=== PATIENT | female | born 1955 | race Caucasian/White ===

== ENCOUNTER → 2020-01-28 08:59 | Outpatient (CLI) | payer MEDICARE, SELFPAY ==
--- NOTE | 2020-01-28 09:07 | XR_ITS ---
PROCEDURE: XR DEXA AXIAL SKELETON CLINICAL HISTORY: POST MENOPAUSAL COMPARISON: No exams were available for comparison FINDINGS: The right hip BMD is 0.652 with a t-score of -1.8. The left hip BMD is 0.609 with a t-score of -2.2. The lumbar spine BMD is 0.803 with a t-score of -2.2. IMPRESSION: Osteopenia with moderate fracture risk. Treatment advised. Suggest follow-up exam in 2 years Dictated b Stew Tse MD 01/29/2020 08:05 Stew Tse MD in [facility] 01/29/2020 08:05
== END ==
PROVIDERS: PCP Family Medicine; Visit Provider Internal Medicine Hematology & Oncology
DX: M85.89 Other specified disorders of bone density and structure, multiple sites (principal); C50.911 Malignant neoplasm of unspecified site of right female breast; Z17.0 Estrogen receptor positive status [ER+]
CPT/HCPCS: 77080

== ENCOUNTER → 2020-05-15 08:58 | Outpatient (CLI) | payer MEDICARE, SELFPAY ==
--- NOTE | 2020-05-15 09:02 | US_ITS ---
PROCEDURE: US THYROID CLINICAL INDICATION: FATIGUE, SORE THROAT COMPARISON: No exams were available for comparison FINDINGS: Right lobe: 1.5cm x 3.8cm x 1.5cm there is a 6 mm ill-defined heterogeneous area of slight decreased echogenicity in the upper pole on the right and may be due to small nodule versus heterogeneous echogenicity. In the lower pole there is a 13 x 5 mm hypoechoic nodule with a somewhat spongiform appearance. Left lobe: 1.0cm x 4.4cm x 1.8cm. There is a 4 mm hyperechoic area in the upper pole on the left and may be due to small nodule. A spongiform nodules present in the upper pole at 7 mm. In the mid polar region there is a 6 mm hypoechoic nodule. Mixed nodules present in the lower pole at 7 mm. Isthmus: Unremarkable Additional findings: IMPRESSION: Bilateral heterogeneous echogenicity with small bilateral nodules. Consider 6-12 month follow-up to confirm stability Dictated by: Stew Tse MD 05/17/2020 12:10 Stew Tse MD in [facility] 05/17/2020 12:10
== END ==
PROVIDERS: PCP Family Medicine; Visit Provider Nurse Practitioner
DX: R53.83 Other fatigue (principal); J02.9 Acute pharyngitis, unspecified
CPT/HCPCS: 76536

== ENCOUNTER → 2021-01-15 11:00 | Outpatient (CLI) | payer MEDICARE, SELFPAY ==
--- NOTE | 2021-01-15 11:03 | US_ITS ---
PROCEDURE: US THYROID CLINICAL INDICATION: THYROID GOITER COMPARISON: US US THYROID from 05/15/2020 FINDINGS: Right lobe: The right lobe is 3.9 x 1.4 x 1.7 cm. The upper pole there is a heterogeneous 7 x 5 mm slightly hypoechoic nodule unchanged. There is an oval 13 by 5 mm hypoechoic nodule in the lower pole unchanged. Left lobe: 3.9 x 1.2 x 1.4 cm. 4 mm hyperechoic nodule in the upper pole unchanged. 6 mm heterogeneous hypoechoic nodule upper pole unchanged. 5 mm hypoechoic/cystic nodule mid polar region unchanged. 4 mm hypoechoic nodule lower pole unchanged. Isthmus: Unremarkable Additional findings: IMPRESSION: Bilateral thyroid nodules as described above benign-appearing and not significantly changed. Annual follow-up suggested. Dictated by: Stew Tse MD 01/15/2021 14:06 Stew Tse MD in [facility] 01/15/2021 14:06
== END ==
PROVIDERS: PCP Family Medicine; Visit Provider Otolaryngology
DX: E04.9 Nontoxic goiter, unspecified (principal)
CPT/HCPCS: 76536

== ENCOUNTER → 2022-02-19 09:23 | Outpatient (CLI) | payer MEDICARE, SELFPAY ==
--- NOTE | 2022-02-19 09:31 | XR_ITS ---
FINAL REPORT CLINICAL HISTORY: .halfway use of meds h/o breast cancer COMPARISON: January 28, 2020 FINDINGS: DEXA BONE DENSITY AXIAL SKELETON Using L1-4, the bone mineral density of the spine is 0.802 g/cm2, corresponding to T-score of -2.2. Previously measured 0.803 g/cm2, corresponding to T-score of -2.2. Using the left hip, the bone mineral density of the femoral neck is 0.595 g/cm2, corresponding to a T-score of -2.3. Previously measured 0.609 g/cm2, corresponding to T-score of -2.2. NOTE: T-score: Standard deviation compared with peak bone mass of young adult mean. *Following the recommendations of the International Society of Bone densitometry, classification of hip BMD is based on the lower of two T-scores; total hip or femoral neck. IMPRESSION: Diminished bone mineral density of the lumbar spine and left hip consistent with osteopenia, similar to prior. FRAX 10 year fracture risk is 2.4% for a hip fracture and 12% for a major osteoporotic fracture. Reviewed, Interpreted and Dictated by Cristofer Blakely III, MD Transcribed by Zamzam Harrison Authenticated and [facility]
--- NOTE | 2022-02-19 09:33 | US_ITS ---
FINAL REPORT CLINICAL HISTORY: THYROID GOITER COMPARISON: 01/15/2021 FINDINGS: Sonographic images of the thyroid were obtained. The thyroid demonstrates a heterogeneous echogenicity. The right lobe of the thyroid measures 4.5 x 1.7 x 1.7 cm. The left lobe of the thyroid measures 4.0 x 1.5 x 1.5 cm. In the right lobe of the thyroid, there is a solid, hypoechoic nodule measuring 8 x 5 x 6 mm consistent with TI-RADS category 4. There is a 2nd nodule in the mid right thyroid which is mostly solid and hypoechoic measuring 8 x 4 x 9 mm consistent with TI-RADS category 4. There is a nodule in the left upper thyroid lobe which is solid and hypoechoic measuring 11 x 7 x 5 mm. There is a nodule in the mid left thyroid lobe which is cystic, solid, and isoechoic measuring 11 x 7 x 7 mm consistent with TI-RADS category 2. Several other smaller nodules are seen bilaterally. IMPRESSION: Multiple bilateral thyroid nodules. A direct comparison is difficult but the visualized nodules appear stable. No new nodule is identified. Recommend follow-up ultrasound in 6-12 months. Reviewed, Interpreted and Dictated by Cristofer Blakely III, MD Transcribed by Lorie Francis Authenticated and [facility]
== END ==
PROVIDERS: PCP Family Medicine; Visit Provider Nurse Practitioner Family
DX: E04.9 Nontoxic goiter, unspecified (principal); C50.911 Malignant neoplasm of unspecified site of right female breast; Z17.0 Estrogen receptor positive status [ER+]; Z79.811 Long term (current) use of aromatase inhibitors
CPT/HCPCS: 76536; 77080

== ENCOUNTER 2024-03-05 08:43 | Outpatient (CLI) | payer MEDICARE, SELFPAY ==
--- NOTE | 2024-03-05 08:48 | XR_ITS ---
FINAL REPORT TECHNIQUE: Bone mineral density was calculated of the lumbar spine and hip. CLINICAL HISTORY: MENOPAUSE COMPARISON: 02/19/2022 FINDINGS: Using L1-4, the bone mineral density of the spine is 0.794 g/cm2, corresponding to T-score of -2.3. Using the left hip, the bone mineral density of the femoral neck is 0.634 g/cm2, corresponding to a T-score of -1.9. NOTE: T-score: Standard deviation compared with peak bone mass of young adult mean. *Following the recommendations of the International Society of Bone densitometry, classification of hip BMD is based on the lower of two T-scores; total hip or femoral neck. IMPRESSION: Diminished bone mineral density of the lumbar spine and left hip consistent with low bone density osteopenia. Reviewed, Interpreted and Dictated by Cristofer Blakely III, MD Transcribed by Paige Echevarria Authenticated and [facility]
== END 2024-03-05 23:59 | disposition home or self-care (01) ==
LOC: RAD 08:44
PROVIDERS: PCP Family Medicine; Visit Provider Internal Medicine Hematology & Oncology
DX: M81.0 Age-related osteoporosis without current pathological fracture (principal); Z78.0 Asymptomatic menopausal state; Z13.820 Encounter for screening for osteoporosis
CPT/HCPCS: 77080

== ENCOUNTER 2024-04-20 08:55 | Outpatient (CLI) | payer MEDICARE, SELFPAY ==
--- OUTSIDE RECORDS SUMMARY | 2024-04-20 08:59 | XMS_ITS ---
Care Plan - [facility], [facility] Created on: April 20, 2024 NASIM SMITH : 1955 Sex: Female Author Organization [facility] Address [address] [place] [address] Phone Care Team Providers Care Cab Station Attendant Name Role Phone Liliana TO, Ash Reilly Unavailable [phone]
--- OUTSIDE RECORDS SUMMARY | 2024-04-20 08:59 | XMS_ITS ---
Author Organization [facility] Address [address] [place] [address] Phone Care Team Providers Care Shroudman Name Role Phone Liliana TO, Ash Reilly Unavailable [phone] Problems Includes: Active, inactive, and resolved Problems All Visits Onset Date Resolved Date Provider Condition S tatus Joint Pain in the Left Wrist 04/09/2024 Walter Anaya MD Active Last Documented On 4 9:18AM ; [facility] Plan of Treatment Findings Encounter Date Patient screened for future fall risk: documentation of any fall with injury in past year Physician Specified with Walter Anaya MD 04/09/2024 Last Documented On 4 3:54PM ; [facility] Future Appointments Date Time Location Provi ananth Physician Specified 04/23/2024 10:00AM [facility] Gerardo Gipson DPM Last Documented On 4 2:55PM ; [facility] Instructions to patient Lose weight Last Documented On 4 9:19AM ; [facility] Assessments Includes: Assessments for all patient encounters No Assessments Recorded Instructions Includes: Instructions for all patient encounters Instructions to patient Lose weight Last Documented On 4 9:19AM ; [facility] Medical Equipment - Implanted Devices Includes: Current and historical Devices No Medical Equipment Recorded Medications Includes: Current and historical Medications Current Medications (continue as prescribed) [facility] Vitamin D3 25 MCG (1000 UT) Oral Tablet Chewable 1 Provider: Diagnosis: Last Documented On 4 11:07AM By Arcelia Meyer ; [facility] Calcium 200 MG Oral Tablet 04/09/2024 Provider: Diagnosis: Last Documented On 4 11:08AM By Arcelia Meyer ; [facility] Anastrozole 1 MG Oral Tablet 04/08/2024 Provider: Diagnosis: Last Documented On 4 11:07AM By Arcelia Meyer ; [facility] Medications Administered Includes: Administered Medications in patient's chart No Administered Medications Recorded Vital Signs Includes: Vital Signs from 04/20/2023 through 04/20/2024 Vital Name 04/09/2024 09:19A Height (in) 64 Weight (lb) 170 Body Mass Index 29.2 Body Surface Area 1.8 Note: KL Last Documented: On 04/09/2024 11:07A M ; [facility] Results Includes: Results from 04/20/2023 through 04/20/2024 No Results Recorded For Specified Dates History of Present Illness History of Present Illness not supported for this document type No History of Present Illness Recorded Social History Description Last Updated Exercising regularly 04/09/2024 Last Documented On 4 3:54PM ; [facility] No caffeine use 04/09/2024 Last Documented On 4 3:54PM ; [facility] No recent change in diet 04/09/2024 Last Documented On 4 3:54PM ; [facility] Not a current smoker. 04/09/2024 Last Documented On 4 3:54PM ; [facility] Not using alcohol 04/09/2024 Last Documented On 4 3:54PM ; [facility] Not using drugs 04/09/2024 Last Documented On 4 3:54PM ; [facility] Smoking Status Unknown Procedures and Surgical History Surgical History Last Updated Past Surgical History: BREAST CA 024 Last Documented On 4 3:54PM ; [facility] Medical History Includes: Medical History in patient's chart Description Last Updated History of History of Cancer 04/09/2024 Last Documented On 4 3:54PM ; [facility] Family History Includes: Family History in patient's chart Description Last Updated Family history of rheumatoid arthritis 1 Last Documented On 4 3:54PM ; [facility] Family history of systemic hypertension 04/09/2024 Last Documented On 4 3:54PM ; [facility] Review of Systems Review of Systems not supported for this document type No Review of Systems Recorded Mental Status Description No anxiety Functional Status No Functional Status Recorded Physical Exam Physical Exam not supported for this document type No Physical Exam Recorded Allergies Includes: Active, inactive, and resolved Allergies Substance Type Reaction Onset Date Resolved Date Statu s OTHER Allergy mold 01/09/2007 Active Last Documented On 4 9:18AM ; [facility] Encounters Includes: Encounters from 04/20/2023 through 04/20/2024 Encounter Provider Location Date Check-In Time Check-Out Time Diagnosis Physician Specified Walter Anaya MD [facility] 04/09/20 24 9:27AM 9:58AM Insurance Includes: Active Insurance Policies Plan Name Member ID Group # Subscriber Relationship Effect shoshana Dates 1 - [facility]/ MEDICARE [id number] NASIM SMITH Self Clinical Notes Includes: Signed Clinical Notes starting from 06/06/2022 * Progress note Date Encounter Last Documented by 04/09/2024 Physician Specified Last sterling arellano on 04/09/2024; 3:54 PM, Walter Anaya MD; [facility] Active Problems & Conditions - Joint Pain in the Left Wrist Chief Complaint The Chief Complaint is: LEFT WRIST PAIN. History of Present Illness NASIM SMITH is a 68 year old female. - Allergy list reviewed - Problem list reviewed - Medication list reviewed - Previous history of new onset pain Injury is not work related or an automotive accident - Pain is occasional (25% of the time) - Patient pain level from 1-10: 2 - Yes, previous treatment. PCP - - Review of medications documented 68-year-old female presents for evaluation of her right radial sided wrist pain. Patient bought an [id number] wrist brace and has been utilizing anti-inflammatories and notes that her symptoms have significantly improved and nearly gone away. She was actually going to cancel her appointment today. Current Medication - Anastrozole 1 MG Oral Tablet 90 days, 0 refills - Calcium 200 MG Oral Tablet 0 days, 0 refills - [facility] Vitamin D3 25 MCG (1000 UT) Oral Tablet Chewable 0 days, 0 refills Past Medical/Surgical History Diagnoses: History of Cancer Surgical: - Past Surgical History: BREAST CA Social History Not a current smoker. Current diet: No recent change in diet. Caffeine use: No caffeine use. Alcohol: Not using alcohol. Drug Use: Not using drugs. Habits: Exercising regularly. Allergies - OTHER Reaction: mold Family History Systemic hypertension Rheumatoid arthritis Review Of Systems Systemic: Not feeling tired, no recent weight loss, and no recent weight gain. Head: No headache and no sinus pain. Eyes: No vision problems, no Cataracts, no Glasses/Contacts, and no Glaucoma. Otolaryngeal: No hearing loss and no tinnitus. Cardiovascular: No chest pain or discomfort, no palpitations, no Hypertension, and no High Cholesterol. Pulmonary: No daytime asthma symptoms and no chronic cough. No wheezing. Gastrointestinal: No heartburn and no abdominal pain. No Indigestion, no Peptic Ulcer, no GI Stomach Bleed, no Ulcers, and no Acid Reflux. Endocrine: No hot flashes, no muscle weakness, no Diabetes, no Hypothyroid, and no Hyperthyroid. Hematologic: No easy bleeding, no tendency for easy bruising, and no Anemia. Musculoskeletal: No Arthritis and no lower back pain. No soft tissue swelling and no localized joint pain. Neurological: No dizziness, no convulsions, and no numbness. Psychological: No anxiety, no emotional lability, no depression, and no insomnia. Not crying for no reason. Skin: No dry skin. No Ulcers, no Scars, and no rash. Allergic and Immunologic: No complaint of seasonal allergic reaction. Physical Findings - Vitals taken 04/09/2024 09:19 am KL Height 64 in Weight 170 lbs Body Mass Index 29.2 kg/m2 Body Surface Area 1.8 m2 PHYSICAL EXAM: CONSTITUTIONAL: Well developed, well groomed, well nourished patient in no acute distress who appears stated age, height and weight. PSYCHIATRIC: The patient is alert and oriented to person, place, date and situation. Mood and affect are normal for current situation. NEUROLOGICAL: Sensation normal bilateral upper and lower extremities. LYMPHATIC: No pitting edema noted in the lower extremities. SKIN: No lesions noted on upper or lower extremities. Skin is dry, warm and with normal turgor. VASCULAR: No swelling in upper or lower extremities other than described below in extremity exam. Pulses normal in both upper (radial) extremities. GAIT AND STATION: Normal gait without assistive devices. Station normal. Left WRIST/HAND: Able to make a composite fist Able to flex and extend all fingers Hand is warm and well perfused Sensation intact to light touch distally in all nerve distributions Patient has mild tenderness over the 1st dorsal compartment, negative Dhruv's. No pain with CMC grind or palpation. Tests Three-view x-rays of the left wrist demonstrate mild degenerative changes and mild osteopenia. No acute osseous abnormalities Previous Tests Imaging: X-Ray: An X-ray was performed. Basic Management Procedures And Services: - Brace Counseling/Education - Tobacco non-user - Use of tobacco assessment performed - Lose weight Plan - Patient screened for future fall risk: documentation of any fall with injury in past year 68-year-old female with resolving, nearly resolved radial sided left wrist pain. Patient has unremarkable x-rays. She has excellent range of motion on exam. I talked to her at length about de Quervain tendinitis. Recommended continued use of brace, activity modification and anti-inflammatories. Patient states that she is almost completely asymptomatic and almost canceled her appointment today. Encouraged the patient to return to clinic if she has recurrence or worsening of her symptoms. Notes This dictation was done with voice recognition software and may contain errors and omissions.
--- OUTSIDE RECORDS SUMMARY | 2024-04-20 08:59 | XMS_ITS | Clinical Summary ---
Author Organization [facility] Address [address] [place] [address] Phone Care Team Providers Care Syruper Name Role Phone Liliana TO, Abran Unavailable [phone] Reason for Visit and Chief Complaint The Chief Complaint is: LEFT WRIST PAIN Problems Includes: Problems addressed during this encounter and other active Problems Current Visit Onset Date Resolved Date Provider Charleen aguilar Status Joint Pain in the Left Wrist 04/09/2024 Walter Anaya MD Active Last Documented On 9:18AM ; [facility] Plan of Treatment - Patient screened for future fall risk: documentation of any fall with injury in past year - Last Documented On 04/09/2024 3:54PM ; [facility] 68-year-old female with resolving, nearly resolved radial [...] has recurrence or worsening of her symptoms. - Last Documented On 04/09/2024 3:54PM ; [facility] Future Appointments Date Time Location Provi ananth Physician Specified 04/23/2024 10:00AM [facility] Gerardo Gipson DPM Last Documented On 4 2:55PM ; [facility] Instructions to patient Lose weight Last Documented On 4 9:19AM ; [facility] Assessments Includes: Assessments from this encounter No Assessments Recorded Instructions Includes: Instructions from this encounter Instructions to patient Lose weight Last Documented On 4 9:19AM ; [facility] Medical Equipment - Implanted Devices Includes: Current Devices No Medical Equipment Recorded Medications Includes: Medications discussed during this encounter and other current Medications Current Medications (continue as prescribed) [facility] Vitamin D3 25 MCG (1000 UT) Oral Tablet Chewable 1 Provider: Diagnosis: Last Documented On 4 11:07AM By Arcelia Meyer ; [facility] Calcium 200 MG Oral Tablet 04/09/2024 Provider: Diagnosis: Last Documented On 4 11:08AM By Arcelia Meyer ; [facility] Anastrozole 1 MG Oral Tablet 04/08/2024 Provider: Diagnosis: Last Documented On 4 11:07AM By Arcelia Meyer ; [facility] Medications Administered Includes: Administered Medications from this encounter No Administered Medications Recorded Vital Signs Includes: Vital Signs from this encounter Vital Name 04/09/2024 09:19A Height (in) 64 Weight (lb) 170 Body Mass Index 29.2 Body Surface Area 1.8 Note: KL Last Documented: On 04/09/2024 11:07A M ; [facility] Results Includes: Results discussed during this encounter No Results Recorded For Specified Dates History of Present Illness Includes: History of Present Illness from this encounter JOCELYNE SMITH is a 68 year old female. [...] radial sided wrist pain. Patient bought an [id number] wrist brace and has been utilizing anti-inflammatories and notes that her symptoms have significantly improved and nearly gone away. She was actually going to cancel her appointment today. Social History Description Last Updated Exercising regularly 04/09/2024 Last Documented On 4 3:54PM ; [facility] No caffeine use 04/09/2024 Last Documented On 4 3:54PM ; [facility] No recent change in diet 04/09/2024 Last Documented On 4 3:54PM ; [facility] Not a current smoker. 04/09/2024 Last Documented On 4 3:54PM ; [facility] Not using alcohol 04/09/2024 Last Documented On 4 3:54PM ; [facility] Not using drugs 04/09/2024 Last Documented On 4 3:54PM ; [facility], [facility] Smoking Status Unknown Procedures and Surgical History Includes: Procedures from this encounter Procedures Code Diagnosis Performing Provider Service L ocation Service Date an X-ray was performed 02150 Last Documented On 4 11:09AM ; [facility] brace Last Documented On 4 11:09AM ; [facility] Surgical History Last Updated Past Surgical History: BREAST CA 024 Last Documented On 4 3:54PM ; [facility] Medical History Includes: Medical History addressed during this encounter Description Last Updated History of History of Cancer 04/09/2024 Last Documented On 4 3:54PM ; [facility] Family History Includes: Family History addressed during this encounter Description Last Updated Family history of rheumatoid arthritis 1 Last Documented On 4 3:54PM ; [facility] Family history of systemic hypertension 04/09/2024 Last Documented On 4 3:54PM ; [facility] Review of Systems Includes: Review of Systems from this encounter Systemic: Not feeling tired, no recent weight [...] Immunologic: No complaint of seasonal allergic reaction. Mental Status Includes: Mental Status from this encounter Description No anxiety Functional Status Includes: Functional Status from this encounter No Functional Status Recorded Physical Exam Includes: Physical Exam from this encounter Allergies Includes: Active Allergies Substance Type Reaction Onset Date Resolved Date Statu s OTHER Allergy mold 01/09/2007 Active Last Documented On 4 9:18AM ; [facility], [facility] Encounters Encounter Provider Location Date Check-In Time Check-Out Time Diagnosis Physician Specified Walter Anaya MD [facility] 04/09/20 24 9:27AM 9:58AM Insurance Includes: Active Insurance Policies Plan Name Member ID Group # Subscriber Relationship Effect shoshana Dates 1 - [facility] [id number] NASIM SMITH Self Clinical Notes Includes: Clinical Notes from this encounter * Progress note Date Encounter Last Documented by 04/09/2024 Physician Specified Last jenniferumejeff adan on 04/09/2024; 3:54 PM, Walter Anaya MD; [facility] Active Problems & Conditions - Joint Pain [...] radial sided wrist pain. Patient bought an [id number] wrist brace and has been utilizing anti-inflammatories [...]
--- OUTSIDE RECORDS SUMMARY | 2024-04-20 08:59 | XMS_ITS | Clinical Summary ---
Author Organization WINNIE GOMEZEDKayla , [facility] Address [address] [place] [address] Phone Care Team Providers Care Study Assistant Name Role Phone Liliana TO, Ash Reilly Unavailable [phone] Reason for Visit and Chief Complaint NEW PATIENT Problems Includes: Problems addressed during this encounter and other active Problems All Visits Onset Date Resolved Date Provider Condition S tatus Joint Pain in the Left Wrist 04/09/2024 Walter Anaya MD Active Last Documented On 4 9:18AM ; WINNIE GRISSOMS, [facility] Plan of Treatment Future Appointments Date Time Location Provi ananth Physician Specified 04/23/2024 10:00AM [facility] Gerardo Gipson DPM Last Documented On 4 2:55PM ; [facility] Assessments Includes: Assessments from this encounter No Assessments Recorded Medical Equipment - Implanted Devices Includes: Current Devices No Medical Equipment Recorded Medications Includes: Medications discussed during this encounter and other current Medications Current Medications (continue as prescribed) [facility] Vitamin D3 25 MCG (1000 UT) Oral Tablet Chewable 1 Provider: Diagnosis: Last Documented On 4 11:07AM By Arcelia RIVERA, [facility] Calcium 200 MG Oral Tablet 04/09/2024 Provider: Diagnosis: Last Documented On 4 11:08AM By Arcelia GRISSOMS, [facility] Anastrozole 1 MG Oral Tablet 04/08/2024 Provider: Diagnosis: Last Documented On 4 11:07AM By Arcelia Meyer ; [facility] Medications Administered Includes: Administered Medications from this encounter No Administered Medications Recorded Vital Signs Includes: Vital Signs from this encounter Vital Name 01/09/2007 01:30P Respiration Rate (breaths/min) 14 Height (in) 64 Weight (lb) 150 Body Mass Index (kg/m2) 25.7 Body Surface Area (m2) 1.7 Note: Rubens Valencia Last Documented: On 01/09/2007 1:50PM ; [facility] Results Includes: Results discussed during this encounter No Results Recorded For Specified Dates History of Present Illness Includes: History of Present Illness from this encounter No History of Present Illness Recorded Social History No Social History Recorded - Smoking Status Unknown Medical History Includes: Medical History addressed during this encounter No Medical History Recorded Family History Includes: Family History addressed during this encounter No Family History Recorded Review of Systems Includes: Review of Systems from this encounter No Review of Systems Recorded Mental Status Includes: Mental Status from this encounter No Mental Status Recorded Functional Status Includes: Functional Status from this encounter No Functional Status Recorded Physical Exam Includes: Physical Exam from this encounter No Physical Exam Recorded Allergies Includes: Active Allergies Substance Type Reaction Onset Date Resolved Date Statu s OTHER Allergy mold 01/09/2007 Active Last Documented On 4 9:18AM ; [facility] Encounters Encounter Provider Location Date Check-In Time Check-Out Time Diagnosis NEW PATIENT Ash Ford MD [facility] 01/10/20 07 1:25PM 2:57PM Insurance Includes: Active Insurance Policies Plan Name Member ID Group # Subscriber Relationship Effect shoshana Dates 1 - [facility]/ MEDICARE [id number] NASIM Bravo Clinical Notes Includes: Clinical Notes from this encounter No Clinical Notes Recorded
--- OUTSIDE RECORDS SUMMARY | 2024-04-20 08:59 | XMS_ITS ---
Author Organization Unknown ALLERGIES AND ADVERSE REACTIONS No information ASSESSMENT No information CHIEF COMPLAINT No information Medications Date Medication Dosage Dosageunit Startdate Active Dispense Refills Ndccode Isprescription Srcstatus 12/02 00:00 :00 Anastrozole 1 MG Tablet 1 30 [id number] Taking 12/02 00:00 :00 Calcium 150 MG Tablet 1 Taking 12/02 00:00 :00 Cefdinir 300 MG Capsule 12/03/2023 00:00:00 1 20 Capsule 0 [id number] 006 P Start 12/02 00:00 :00 Claritin 10 MG Tablet 1 30 [id number] 501 Not Taking 12/02 00:00 :00 Flonase 50 MCG/ACT Suspension 06/17/2017 00:00:00 1 1 [id number] 301 P Taking 12/02 00:00 :00 Tobrex 0.3 % Solution 05/14/2021 00:00:00 1 5 ml 0 [id number] 305 P Not Taking 12/02 00:00 :00 Vitamin D-3 125 MCG (5000 UT) Tablet 1 [id number] 18 Taking OBJECTIVE DATA No information PHYSICAL EXAMINATION No information TREATMENT PLAN No information PROBLEMS No information RESULTS No information REVIEW OF SYSTEMS No information SUBJECTIVE DATA No information VITAL SIGNS No information
--- OUTSIDE RECORDS SUMMARY | 2024-04-20 09:00 | XMS_ITS | Patient Health Record ---
Author Organization [facility] Address [address] [place] [address] Care Team Providers Care Print Project Manager Name Role Phone Criss Kaufman Unavailable [phone] Reason For Referral No Information Medications Medication SIG (Take, Route, Frequency, Duration) Notes Start Date End Date Status Vitamin D Active Calcium Active Fluocinolone Acetonide 0.025 % 1 application Externally once weekly for 90 days 01/23/2022 Active Anastrozole Active Social History Tobacco Use: Social History Observation Description Date Details (start date - stop date) Never Smoker NA - NA Sex Assigned At : Social History Observation Description Sex Assigned At Female Tobacco Use/Smoking Question Answer Notes Are you a nonsmoker Alcohol Screen Question Answer Notes Did you have a drink containing alcohol in the p ast year? 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) Lichen sclerosus et atrophicus of the vulva (N90.4) Active confirmed Problem Gynecological examination normal (011075817830184 ) Cervical smear, as part of routine gynecological examination (Z01.419) 01/18/20 21 Active confirmed Annual without abnormal findings Vital Signs Blood pressure diastolic 82 mm Hg 02/18/2024 Height 65 in 02/18/2024 Blood pressure systolic 130 mm Hg 02/18/2024 Weight 177.6 lbs 02/18/2024 BMI 29.55 kg/m2 02/18/2024 Encounters Encounter Location Date Provider Diagnosis [facility]- [address] [place] [address] 02/16/2024 Criss Kaufman [facility] [address] [place] [address] 02/18/2024 Criss Kaufman Visit for screening mammogram Z12.31 ; Encounter for gynecological examination (general) (routine) without abnormal findings Z01.419 and Lichen sclerosus et atrophicus of the vulva N90.4 Assessments Encounter Date Diagnosis (ICD Code) Assessment Notes Treat ment Notes Treatment Clinical Notes 02/18/2024 Visit for screening mammogram (ICD-10 - Z12.31) 02/18/2024 Lichen sclerosus et atrophicus of the vulva (ICD-10 - N90.4) Stable. Refill maintenance medication. 02/18/2024 Encounter for gynecological examination (general) (routine) without abnormal findings (ICD-10 - Z01.419) 02/18/2024 Other - Skin looks good, continue once weekly cream applicaiton Plan Of Treatment Next Appt Details Provider Name:Criss Kaufman , 03/01/2025 09:30:00 AM, [address], [place], [address], Insurance Providers Payer Name Payer Address Payer Phone Subscriber Number Group Number Insured Name Patient Relationship to Insured Coverage Start Date Coverage End Date [facility] [employer] [address] [address] [place], [place] [id number] Nilda Bhatt i Self - patient is the insured Medical (General) History Medical History History ICD Code Abnormal pap Breast cancer Lichen sclerosus Surgical History Surgery Date(Month/Year) breast lumpectomy
--- OUTSIDE RECORDS SUMMARY | 2024-04-20 09:00 | XMS_ITS ---
Author Organization [facility] Address [address] [place] [address] Care Team Providers Care Central Supply Manager Name Role Phone Criss Kaufman Unavailable [phone] REASON FOR VISIT left VM to r/s ALILLY Social History Sex Assigned At : Social History Observation Description Sex Assigned At Female Encounters Encounter Location Date Provider Diagnosis [facility]- [address] [place] [address] 02/09/2024 Criss Kaufman Plan Of Treatment Next Appt Details Provider Name:Criss Kaufman , 03/01/2025 09:30:00 AM, [address], [address], [place], [address], Progress Notes * Nilda SMITH ADOB:1955 (68 yo F)Acc No.[id number]:02/09/2024 Progress Note Patient:?Nilda SMITH Provider:?Criss Kaufman MD :1955???Age:68 Y???Sex:Female D ate:02/09/2024 Address:[address] [place] Subjective: * Chief Complaints: * ???1. left VM to r/s ALILLY. * Medical History:? Objective: * Vitals:? Assessment: Plan: * Treatment: * Billing Information: * Visit Code:? * Procedure Codes:? * Electronic signature of Debi Kaufman MD on 04/20/2024 at 08:59 AM EDT Sign off status: Pending Visit Status:?R/S (Reschedul ed) * Provider:?Criss Kaufman MD Date:?02/08 Generated for Candie carroll/Neptali/eTransmitting on:?04/20/2024 08:59 AM EDT
--- OUTSIDE RECORDS SUMMARY | 2024-04-20 09:00 | XMS_ITS ---
Author Organization [facility] Address [address] [place] [address] Care Team Providers Care Multifocal Button Inspector Name Role Phone Criss Kaufman Unavailable [phone] Social History Sex Assigned At : Social History Observation Description Sex Assigned At Female Encounters Encounter Location Date Provider Diagnosis [facility]- [address] [place] [address] 02/16/2024 Criss Fusmillie Plan Of Treatment Next Appt Details Provider Name:Criss Shae , 03/01/2025 09:30:00 AM, [address], [address], [place], [address], Progress Notes * Nilda SMITH ADOB:1955 (68 yo F)Acc No.[id number]:02/16/2024 Patient:?Nilda SMITH :1955???Age:68 Y???Sex:Female Address:[address] [place], [address] Subjective: * Chief Complaints: * ??? * Medical History:? * Surgical History:? * Hospitalization/Major Diagno stic Procedure:? * Medications:? Objective: * Vitals:? * Physical Examination:? Assessment: Plan: * Treatment: * Procedure Codes:? * true * Date:? Generated for Candie carroll/Neptali/Robertitting on:?04/20/2024 08:59 AM EDT
--- OUTSIDE RECORDS SUMMARY | 2024-04-20 09:00 | XMS_ITS ---
Author Organization [facility] Address [address] [place] [address] Care Team Providers Care Public Health Training Assistant Name Role Phone Criss Kaufman Unavailable [phone] Allergies No Known Allergies REASON FOR VISIT annual Medications Medication SIG (Take, Route, Frequency, Duration) [...] ast year? No Points 0 Interpretation Negative Vital Signs Blood pressure systolic 130 mm Hg 02/18/20 24 Blood pressure diastolic 82 mm Hg 024 Height 65 in 02/18/2024 Weight 177.6 lbs 02/18/2024 BMI 29.55 kg/m2 02/18/2024 Encounters Encounter Location Date Provider Diagnosis [facility] [address] [place] [address] 02/18/2024 Criss Kaufman Visit for screening mammogram Z12.31 ; Encounter for gynecological examination (general) (routine) without abnormal findings Z01.419 and Lichen sclerosus et atrophicus of the vulva N90.4 Assessments Encounter Date Diagnosis (ICD Code) Assessment Notes Treat ment Notes Treatment Clinical Notes 02/18/2024 Visit for screening mammogram (ICD-10 - Z12.31) 02/18/2024 Encounter for gynecological examination (general) (routine) without abnormal findings (ICD-10 - Z01.419) 02/18/2024 Lichen sclerosus et atrophicus of the vulva (ICD-10 - N90.4) Stable. Refill maintenance medication. 02/18/2024 Other - Skin looks good, continue once weekly cream applicaiton Plan Of Treatment Medication Medication Name Sig Start Date Stop Date Notes Fluocinolone Acetonide 0.025 % 1 applica tion Externally once weekly for 90 days 01/23/2022 Treatment Notes Assessment Notes Other - Skin looks good, continue once weekly cream applicaiton Next Appt Details Follow Up: 1 Year, Reason: a nnual Provider Name:Criss Kaufman , 03/01/2025 09:30:00 AM, [address], [place], [address], Progress Notes * Nilda SMITH ADOB:1955 (68 yo F)Acc No.[id number]:02/18/2024 Progress Note Patient:?Nilda SMITH Provider:?Criss Kaufman MD :1955???Age:68 Y???Sex:Female D ate:02/18/2024 Address:[address] [place] [address] [facility] Subjective: * Chief Complaints: * ???Annual * HPI: ???Annual:?Annual Exam?High Risk Indicators:?: ?68 year old here for annual exam. She has no concerns and reports using her steriod cream once a week. Mammogram UTD BI-RADS 1. * ROS:?Negative unless noted in HPI. . * Medical History:? 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 Osteoporosis , Osteoporosis (Other Family Member). * Social History:?Tobacco Use:?Tobacco Use/Smoking?Are you a?nonsmoker ???Drugs/Alcohol:?Drugs?Have you used drugs other than those for medical reasons in the past 12 months??No ?Alcohol Screen?Did you have a drink containing alcohol in the past year??No ?Points?0 ?Interpretation?Negative * Medications:?TakingAnastrozo le Calcium Fluocinolone Acetonide 0.025 % Ointment 1 application Externally once weekly Vitamin D Medication List reviewed and reconciled with the patientTaking Anastrozole Taking Calcium Taking Fluocinolone Acetonide 0.025 % Ointment 1 application Externally once weekly Taking Vitamin D Medication List reviewed and reconciled with the patient * Allergies:?N.K.D.A.yes[Aller gies Verified] Objective: * Vitals:?BP:130/82mm Hg, Ht: 65 in, Wt: 177.6 lbs, BMI:29.55Index, Ht-cm: 165.1, Wt-k.56. * Examination: ???General Examination: ?GENERAL APPEARANCE:?Well developed, well nourished, alert in no acute distress.?NEURO/PSYCH:?Oriented to person, place, and time.? Mood pleasant, normal affect.?CARDIOPULMONARY:?Respiratory effort is even and unlabored.?ABDOMINAL/GASTROINTESTINAL:?Abdomen nontender, no masses palpated.?Breast Examination: ?BREASTS:?Breast normal. No evidence of mass, skin changes, nipple retraction or discharge.?AXILLARY LYMPH NODES:?No lymphadenopathy.?Genitourinary Examination - Female: ?EXTERNAL GENITALIA:?Normal appearance for age, no erythema or skin lesions present.?URETHRA/URETHRAL MEATUS:?Normal in appearance, nontender without mass effect.?BLADDER:?Normal and nontender to palpation.?VAGINA:?Normal appearance for age, no significant discharge, lesions, or masses present.?CERVIX:?Appearance normal, no lesions present, no significant discharge, no tenderness to cervical motion.?UTERUS:?Size normal, no palpable masses, mobile, nontender to palpation.?ADNEXA:?No masses or tenderness bilaterally.?PERINEUM:?Normal in appearance without lesion.?PELVIC LYMPH NODES:?No lymphadenopathy.?Puppet Engineer: ?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 Assessment: * Assessment: 1.?Encounter for gynecologic al examination (general) (routine) without abnormal findings - Z01.419 (Primary)?2.?Visit for screening mammogram - Z12.31?3.?Lichen sclerosus et atrophicus of the vulva - N90.4? Plan: * Treatment: 2.?Others? Refill Fluocinolone Acetonide Ointment, 0.025 %, 1 application, Externally, once weekly, 90 days, 15 gram, Refills 4.?? Notes: - Skin looks good, continue once weekly cream applicaiton ?? * Procedure Codes:?91219 Pelvi c examination [List separately in addition to code for primary procedure] * Preventive Medicine:? ??Counseling:?Routine Preventative Care:?Reviewed ACOG guidelines for preventative exams and cervical cancer screenings. Preventative health guidelines discussed regarding breast cancer, colon cancer, and osteoporosis screening and prevention as appropriate. Counseled on safe sex practices including control and prevention of sexually transmitted infections as appropriate.?BMI care goal follow-up plan:?BMI management provided?Yes ?Discussed importance of healthy BMI?Yes ?Smoking:?Type of Tobacco Use Cessation Counseling provided?Counseled if indicated * Follow Up:?1 Year (Reason: a nnual) * Billing Information: * Visit Code:? G0101 Cervical or vaginal cancer screening; pelvic and clinical breast examination. 37640 Est PT Annual 65 and over. * Procedure Codes:? 56980 Pelvic examination [List separately in addition to code for primary procedure]. * Sign off status: Completed Visit Status:?CHK (Check Out ) true * Provider:?Criss Kaufman MD Date:?02/17 Generated for Candie carroll/Neptali/eTransmitting on:?04/20/2024 08:59 AM EDT History and Physical Notes * HPI (History of Present Illness) Category Sub-Category Detail Notes Annual Annual Exam High Risk Indicators:: : Examination Category Sub-Category Detail Notes Genitourinary Examination - Female VAGINA: Normal appearance for age, no significant discharge, lesions, or masses present CERVIX: Appearance normal, n o lesions present, no significant discharge, no tenderness to cervical motion UTERUS: Size normal, no palp able masses, mobile, nontender to palpation BLADDER: Normal and nontender to palpation ADNEXA: No masses or tendern ess bilaterally EXTERNAL GENITALIA: Normal appearance fo r age, no erythema or skin lesions present URETHRA/URETHRAL MEATUS: Normal in appea carlota, nontender without mass effect PERINEUM: Normal in appearance without lesion PELVIC LYMPH NODES: No lymphadenopathy General Examination GENERAL APPEARANCE: Well dev eloped, well nourished, alert in no acute distress NEURO/PSYCH: Oriented to person, place, and time. 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 No evidence of mass, skin changes, nipple retraction or discharge AXILLARY LYMPH NODES: No lymphadenopathy
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
== END 2024-04-20 23:59 | disposition home or self-care (01) ==
LOC: RAD 08:57
PROVIDERS: PCP Nurse Practitioner; Visit Provider Nurse Practitioner
DX: M79.671 Pain in right foot (principal)
CPT/HCPCS: 73630